=== PATIENT | male | born 1950 | race Caucasian/White ===

== ENCOUNTER → 2021-01-05 01:42 | Outpatient (CLI) | payer MEDICARE, SELFPAY ==
[2021-01-05 17:06] LABS: SARS-CoV-2 RNA PCR Negative
== END ==
PROVIDERS: PCP Family Medicine; Visit Provider Physician Assistant Medical
DX: Z20.822 Contact with and (suspected) exposure to COVID-19 (principal)
CPT/HCPCS: C9803; U0003; U0005

== ENCOUNTER 2021-03-28 10:06 | Emergency (ER) | payer OTHER, SELFPAY ==
--- NOTE | ~2021-03-28 | CT_ITS ---
EXAMINATION: CT cervical spine wo con EXAM DATE: 03/28/2021 13:07 INDICATION: Neck pain, Head injury- TECHNIQUE: Spiral CT of the cervical spine was performed without contrast. Axial images were reviewe d. Coronal and sagittal reformatted images cervical spine were also reviewed. The dose-length produc t (DLP) for this examination was 473.10 mGy-cm. The exposure was tailored according to patient size (auto mA exposure control), and iterative reconstruction (ASIR) was used as additional dose reduction technique. There is no prior study for comparison. FINDINGS: There is no evidence of acute cervical fracture. The odontoid process is intact. Pre-dens space is normal. Prevertebral soft tissue is normal. There are no soft tissue abnormalities identi fied. There is no disc space widening or traumatic vertebral body subluxation suspected. Moderate t o severe disc disease, arthropathy and neural foraminal stenosis C4-C7. A detailed level by level jacinto luation of spondylosis can be added as addendum if requested. IMPRESSION: 1. No acute cervical fracture. 2. Cervical spondylosis. Reviewed, dictated and finalized at location B. 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
--- NOTE | ~2021-03-28 | CT_ITS ---
EXAMINATION: CT brain wo con DATE: 03/28/2021 13:06 INDICATION: Head injury with head pain TECHNIQUE: Computed tomography (CT) of the head was performed without intravenous contrast. Sagittal and coronal reconstructions were performed. The mA was adjusted according to patient size. Iterative reconstruction technique was employed. The dose-length product was 681.00 mGy-cm. COMPARISON: None FINDINGS: Suggestion of mild soft tissue swelling overlying the right supraorbital rim. No fracture. No acute i ntracranial hemorrhage, acute infarction or abnormal extra axial fluid collection. There is moderate scattered white matter hypoattenuation consistent with chronic small vessel ischemic disease. Ventric les are normal and symmetric. No mass/mass effect. Changes of bilateral intraocular lens replacement. The orbits, paranasal sinuses and mastoid air cells are normal. Intracranial calcified cerebral athe rosclerosis is noted. IMPRESSION: 1. No fracture or acute intracranial process. 2. Moderate scattered white matter hypoattenuation consistent with chronic small vessel ischemic dise ase. Reviewed, dictated and finalized at location A. 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 No fracture or acute intracranial process. 2. Moderate scattered white matter hypoattenuation consistent with chronic smal l vessel ischemic disease.
[2021-03-28 10:21] VITALS: BP 177/92; PULSE 92; RESP 18; TEMP 36.8; O2SAT 99
--- NOTE | 2021-03-28 12:11 | ED.HEATRA ---
HPI - Head Injury General Chief complaint: Head Injury Stated complaint: head lac Time Seen by Provider: 03/28/21 11:59 Source: patient Mode of arrival: ambulatory Limitations: no limitations History of Present Illness HPI Narrative: Patient somehow got hit to the right forehead by a piece of metal from his garage door. Prior to arrival. No loss of consciousness, complaining of laceration right forehead. Related Data Allergies Allergy/AdvReac Type Severity Reaction Status Date / Time No Known Allergies Allergy Verified 10/10/20 14:33 Review of Systems Review of Systems: CONSTITUTIONAL: Denies fever, chills, or sweats. EYES: Denies visual changes, redness, or discharge. ENT: Denies rhinorrhea, congestion, sore throat, or otalgia. CARDIOVASCULAR: Denies chest pain, palpitations, or edema. RESPIRATORY: Denies cough or dyspnea. GASTROINTESTINAL: Denies abdominal pain, nausea, vomiting, or diarrhea. GENITOURINARY: Denies dysuria or hematuria. SKIN: Denies rash or itching. MUSCULOSKELETAL: Denies back pain, joint pain, or myalgia. NEUROLOGIC: Denies headache, numbness, or weakness. PSYCHIATRIC: Denies anxiety or depression. PMFSH Past Medical History Medical History Anxiety disorder, unspecified BMI 28.0-28.9,adult CMV (cytomegalovirus infection) Colon polyp Depression with anxiety Elevated glucose Loraine Dexter infection Low testosterone Mixed hyperlipidemia PVC (premature ventricular contraction) Family History Family History Mother Patient's mother is in good health Patient's mother is Sibling Patient's brother is in good health Father Acute myocardial infarction Other Family history of arthritis Hypertension Social History Social History Second hand tobacco smoke exposure: No Smoking end date: 04/15/02 Alcohol intake: never Exam Narrative: General appearance: Well-developed, well-nourished Skin: 4 cm laceration across the right forehead Head: Normocephalic, traumatic right forehead laceration Eyes: Clear conjunctiva ENT: Oropharynx normal, ears normal, nose normal Neck: Supple, nontender Musculoskeletal: Normal range of motion, nontender back Neurologic: Alert and oriented ?3, MENU PLANNER is normal as tested, no gross motor deficit Course Course Emergency Course: Stable Vital Signs Vital signs: Vital Signs Temperature 36.8 C 03/28/21 10:21 Pulse Rate 92 03/28/21 10:21 Respiratory Rate 18 03/28/21 10:21 Blood Pressure 177/92 H 03/28/21 10:21 Pulse Oximetry 99 03/28/21 10:21 Temperature 36.8 C 03/28/21 10:21 Pulse Rate 92 03/28/21 10:21 Respiratory Rate 18 03/28/21 10:21 Blood Pressure 177/92 H 03/28/21 10:21 Pulse Oximetry 99 03/28/21 10:21 Procedures Laceration Laceration 1: Date: 03/28/21 Time: 12:45 Site: face Side (If applicable): right Size (cm): 4 Description: linear and clean Depth: simple, single layer Local Anesthetic: lidocaine 1% and with epi Amount of anesthesia used (mL): 5 ====== Skin Level ====== Skin layer closed with: nylon Size (cm): 6-0 Number of sutures: 8 Technique: simple, interrupted ====== Subcutaneous Layer ====== ====== Muscle Layer ====== ====== Tendon Layer ====== MDM - Head Injury MDM Narrative Medical decision making narrative: Traumatic right forehead laceration, sutures, CT head and cervical spine showed no acute abnormalities. Imaging Data Radiologist
[2021-03-28] MEDS: TETANUS,DIPHTHERIA,AC PERTUSSIS ADULT (0.5 ML) BOOSTRIX IM (12:45)
[2021-03-28] MEDS: CEPHALEXIN 500 MG CAPSULE PO (13:42)
== END 2021-03-28 14:20 | disposition home or self-care (01) ==
PROVIDERS: Emergency Provider Emergency Medicine; PCP Family Medicine
DX: S01.81XA Laceration without foreign body of other part of head, initial encounter (principal); Z23 Encounter for immunization; E78.2 Mixed hyperlipidemia; Z85.038 Personal history of other malignant neoplasm of large intestine; Z87.891 Personal history of nicotine dependence; M47.812 Spondylosis without myelopathy or radiculopathy, cervical region; W22.8XXA Striking against or struck by other objects, initial encounter
CPT/HCPCS: 12013; 70450; 72125; 90471; 90715; 99284; A9270

== ENCOUNTER 2021-11-13 10:47 | Outpatient (CLI) | payer MEDICARE, MEDICAID, SELFPAY ==
--- NOTE | ~2021-11-13 | XR_ITS ---
XR shoulder LT min 2V DATE: 11/13/2021 11:27 INDICATION: Left shoulder pain TECHNIQUE: AP and axillary views COMPARISON: None FINDINGS: There is mild osteoarthritis at the left glenohumeral joint. Mild superior subluxation of the left humeral head may indicate rotator cuff tear or atrophy. No fracture, dislocation, periosteal reaction or bone destruction. Diffuse osteopenia. Degenerative changes of the cervical and thoracic spine. IMPRESSION: Mild glenohumeral osteoarthritis and probable rotator cuff atrophy Osteopenia Degenerative changes of the cervical and thoracic spine Reviewed, dictated and finalized at location B.
--- NOTE | ~2021-11-13 | XR_ITS ---
XR hand RT 2V DATE: 11/13/2021 11:27 INDICATION: Right hand pain TECHNIQUE: AP and lateral views COMPARISON: 11/06/2013 right hand FINDINGS: There is polyarticular osteoarthritis, particularly prominent at the first carpometacarpal joint and second metacarpophalangeal joint with very prominent spurring at the latter. Osteoarthritic changes also noted at the first and second metacarpophalangeal joints and distal interphalangeal dandre nt of the second digit and to a lesser extent other interphalangeal joints. No fracture, dislocation, periosteal reaction or bone destruction, erosive change or chondrocalcinosi s. IMPRESSION: Polyarticular osteoarthritis Reviewed, dictated and finalized at location B.
--- NOTE | ~2021-11-13 | XR_ITS ---
XR elbow LT 2V DATE: 11/13/2021 11:23 INDICATION: Left elbow pain TECHNIQUE: AP and lateral views COMPARISON: 10/21/2017 left elbow FINDINGS: There is very prominent joint space narrowing and spurring consistent with severe osteoarth ritis at the left elbow joint. Mild elbow joint effusion. No fracture or dislocation, periosteal reaction or bone destruction is evident. IMPRESSION: Severe osteoarthritis, mild joint effusion Reviewed, dictated and finalized at location B.
--- NOTE | ~2021-11-13 | XR_ITS ---
XR hand LT 2V DATE: 11/13/2021 11:27 INDICATION: Left hand pain TECHNIQUE: AP and lateral views COMPARISON: None FINDINGS: There is polyarticular osteoarthritis, including first carpometacarpal, first and third met acarpophalangeal joints in particular. There is mild osteoarthritis at some of the interphalangeal meron ints. No erosive change or chondrocalcinosis is noted. No fracture, dislocation, periosteal reaction or bon e destruction. IMPRESSION: Polyarticular osteoarthritis Reviewed, dictated and finalized at location B.
--- NOTE | ~2021-11-13 | XR_ITS ---
XR elbow RT 2V DATE: 11/13/2021 11:27 INDICATION: Right elbow pain TECHNIQUE: AP and lateral views COMPARISON: 10/31/2017 right elbow FINDINGS: Moderate osteoarthritis is again noted. No fracture or dislocation or joint effusion, perio steal reaction or bone destruction. IMPRESSION: Moderate osteoarthritis Reviewed, dictated and finalized at location B. IMPRESSION: Moderate osteoarthritis
--- NOTE | ~2021-11-13 | XR_ITS ---
XR shoulder RT min 2V DATE: 11/13/2021 11:28 INDICATION: Right shoulder pain. No injury. TECHNIQUE: AP and axillary views COMPARISON: None FINDINGS: Osteopenia. Mild to moderate glenohumeral osteoarthritis. Normal alignment at the acromioclavicular and glenohume ral joints. No fracture, dislocation, periosteal reaction or bone destruction. Degenerative changes of the cervical and thoracic spine IMPRESSION: Mild to moderate osteoarthritis at right glenohumeral joint Osteopenia Degenerative changes of the cervical and thoracic spine Reviewed, dictated and finalized at location B.
== END 2021-11-13 10:48 | disposition home or self-care (01) ==
PROVIDERS: PCP Family Medicine; Visit Provider Nurse Practitioner Family
DX: M25.511 Pain in right shoulder (principal); M19.012 Primary osteoarthritis, left shoulder; M19.011 Primary osteoarthritis, right shoulder; M85.89 Other specified disorders of bone density and structure, multiple sites; M19.042 Primary osteoarthritis, left hand; M19.041 Primary osteoarthritis, right hand; M25.422 Effusion, left elbow; M19.022 Primary osteoarthritis, left elbow; M19.021 Primary osteoarthritis, right elbow
CPT/HCPCS: 73030; 73070; 73120

== ENCOUNTER 2022-01-25 09:45 | Outpatient (CLI) | payer MEDICARE, MEDICAID, SELFPAY ==
--- NOTE | ~2022-01-25 | NM_ITS ---
EXAMINATION: NM bone scan whole body DATE: 01/25/2022 12:50 INDICATION: Prostate cancer TECHNIQUE: 22.2 mCi Tc-99m HDP was administered intravenously. Delayed whole-body scintigrams were o btained. COMPARISON: CT abdomen and pelvis and chest radiograph, both dated 01/25/2022 FINDINGS: Typical pattern of likely degenerative joint centered uptake at the bilateral acromioclavicular and g lenohumeral joints, the bilateral elbows, radial aspect of the carpi, bilateral knees with medial com partment predominance and at the bilateral first metatarsophalangeal joints, right greater than left. There is also likely discogenic increased uptake at the left side of the lower lumbar spine correspo nding to severe disc height loss with prominent sclerotic Modic type III endplate changes on the left at L4-L5. Uptake posteriorly at the right side of the lower cervical spine with corresponding severe hypertrophic facet osteoarthritis at C4-C5 and C5-C6 evident on the chest radiograph. No other suspi cious foci of bone uptake to suggest metastatic disease. IMPRESSION: 1. Typical pattern of scattered joint and disc centered uptake in the axial and appendicular skeleton as detailed above. No bone lesions suspicious for metastatic disease. Reviewed, dictated and finalized at location B. IMPRESSION: 1. Typical pattern of scattered joint and disc centered uptake in the axial and appendicular skeleton as detailed above. No bone lesions suspicious for metast atic disease.
--- NOTE | ~2022-01-25 | CT_ITS ---
EXAMINATION: CT abdomen pelvis w con DATE: 01/25/2022 10:34 INDICATION: Prostate cancer. TECHNIQUE: Computed tomography (CT) of the abdomen and pelvis was performed with 100 mL Omnipaque 350 intravenous contrast. Automated exposure control and iterative reconstruction technique were employe d. The dose-length product was 552.86 mGy-cm. COMPARISON: Bone scan 01/25/2022 FINDINGS: The visualized portions of the lung bases demonstrate emphysema and chronic interstitial jim ng disease. No pleural effusion. The heart size is normal. There are coronary artery calcifications. No pericardial effusion. The liver, gallbladder, spleen, pancreas, and adrenal glands are normal. The re are cysts in the kidneys measuring up to 10 mm on the left. There are bilateral inguinal hernias c ontaining fat. There is diverticulosis of the colon without evidence of diverticulitis. The appendix is normal. There are no dilated loops of bowel. There are no pathologically enlarged lymph nodes. The re is no free intraperitoneal fluid. There is severe lumbar spondylosis. There is a chronic left L5 p ars defect. There is mild chronic height loss of multiple vertebral bodies. IMPRESSION: 1. No evidence of metastatic disease. Reviewed, dictated and finalized at location A.
--- NOTE | ~2022-01-25 | XR_ITS ---
XR chest 2V 01/25/2022 10:23 Indication: Prostate cancer Procedure: 2 view chest Comparison: No prior studies for comparison. Findings: There are linear infiltrates bilaterally in the midlungs. Heart size normal. No pleural eff usion, edema or pneumothorax. No acute osseous abnormality. Impression: 1: Linear infiltrates bilateral mid lungs, most likely atelectasis/fibrosis. Pneumonia less favored. Reviewed, dictated and finalized at location A. Impression: 1: Linear infiltrates bilateral mid lungs, most likely atelectasis/fibrosis. Pn eumonia less favored.
[2022-01-25 10:26] LABS: Estimated Glomerular Filt Rate > 60
== END 2022-01-25 09:46 | disposition home or self-care (01) ==
PROVIDERS: PCP Family Medicine; Visit Provider Urology
DX: C61 Malignant neoplasm of prostate (principal); R91.8 Other nonspecific abnormal finding of lung field
CPT/HCPCS: 71046; 74177; 78306; A9561; Q9967

== ENCOUNTER 2022-11-28 11:40 | Outpatient (CLI) | payer MEDICARE, MEDICAID, SELFPAY ==
--- NOTE | ~2022-11-28 | XR_ITS ---
EXAMINATION: XR lumbar spine 6V w bending DATE: 11/28/2022 12:04 INDICATION: Unspecified inflammatory lumbar spondylopathy. TECHNIQUE: 7 fluoroscopic views of the lumbar spine including AP, lateral in neutral, flexion and ext ension, left and right oblique and coned-down lateral lumbosacral views were obtained. COMPARISON: CT abdomen pelvis dated 01/25/2022, lumbar spine MR dated 07/04/2018 and lumbar spine radi ographs dated 06/29/2013 FINDINGS: 12 degree dextroscoliosis measured between L2 and L5. 7 degree anterolisthesis L5 on S1 which is unch anged with flexion and extension. There is 3 mm anterolisthesis L3 on L4 with flexion which reduces i n the neutral position and with extension. Chronic compression fractures with 20% anterior vertebral body height loss at T12 and L1. Severe disc height loss with degenerative endplate changes at L4-5. M oderate disc height loss at L5-S1. Again seen is a left-sided pars intra-articular is defect at L5. M ultilevel bilateral moderate to severe lumbar facet osteoarthritis lower lumbar predominant. Atherosc lerotic abdominal aorta. IMPRESSION: 1. Mild thoracolumbar dextroscoliosis with severe spondylosis. 2. Unilateral left-sided L5 pars intra-articular is defect with 7 mm anterolisthesis L5 on S1 which i s unchanged with flexion and extension. 3. 3 mm anterolisthesis L3 on L4 which reduces in the neutral and extended positions. Reviewed, dictated and finalized at location A. IMPRESSION: 1. Mild thoracolumbar dextroscoliosis with severe spondylosis. 2. Unilateral left-sided L5 pars intra-articular is defect with 7 mm anterolist hesis L5 on S1 which is unchanged with flexion and extension. 3. 3 mm anterolisthesis L3 on L4 which reduces in the neutral and extended posi tions.
== END 2022-11-28 11:41 | disposition home or self-care (01) ==
PROVIDERS: PCP Family Medicine; Visit Provider Nurse Practitioner Family
DX: M46.96 Unspecified inflammatory spondylopathy, lumbar region (principal); R20.0 Anesthesia of skin; R20.2 Paresthesia of skin; M47.816 Spondylosis without myelopathy or radiculopathy, lumbar region; M41.9 Scoliosis, unspecified; R93.7 Abnormal findings on diagnostic imaging of other parts of musculoskeletal system
CPT/HCPCS: 72114

== ENCOUNTER 2023-01-28 11:32 | Outpatient (CLI) | payer MEDICARE, MEDICAID, SELFPAY ==
--- NOTE | ~2023-01-28 | PE_ITS ---
EXAMINATION: PET_PETPSMAST_PT DATE: 01/28/2023 14:19 INDICATION: Posterior cancer TECHNIQUE: 8.383 mCi of pipflufolastat F-18 (18-F-DCFPyL) was administered i.v. Low dose computed to mography (CT) images were acquired from the base of the brain to the base of the brain to the proxima l thighs for attenuation correction and anatomic localization. Positron emission tomography (PET) lien ges were acquired in the same distribution beginning 90 minutes after injection. Images including fus ed PET/CT images were reconstructed in axial, coronal, and sagittal planes. Automated exposure contro l technique was employed. The dose-length product was 486.01mGy-cm. COMPARISON: CT abdomen and pelvis and bone scan dated 01/25/2022 FINDINGS: Head/neck: Typical pattern of symmetric physiologic increased activity in the lacrimal, parotid and submandibula r glands as well as along the mucosa of the nasal and oral cavities, the vi-, naso- and hypopharynx, the glottis and esophagus. No pathologically enlarged cervical lymphadenopathy or suspicious foci of increased uptake in the visualized head or neck. Chest: Moderate to severe upper lung predominant emphysema. Additional subpleural cystic changes at the waldemar phery of the lingula and bilateral lower lobes with intervening irregular septal line thickening whic h could also be related to emphysema or usual interstitial pneumonia (UIP) pattern chronic interstiti al lung disease. No pleural effusion. Cardiomegaly. Atherosclerotic coronary artery calcifications. T horacic aorta is normal in caliber. No pathologically enlarged or PSMA avid thoracic lymphadenopathy. Abdomen/pelvis/proximal thighs: Physiologic renal accumulation and excretion of activity in the kidneys, bladder and along portions o f ureters. Normal degree and slightly heterogenous pattern of increased uptake throughout the liver a nd spleen without radiologic correlate or dominant PSMA avid lesion. The gallbladder, pancreas and bi lateral adrenal glands are normal. Moderate uptake scattered throughout the bowels with typical duode nal and proximal jejunal predominance and without radiologic correlate, also likely physiologic. Ther e is moderate colonic diverticulosis with a sigmoid predominance. There is no adjacent inflammatory change to suggest diverticulitis. Normal appendix. Mild heterogeneous pattern of increased uptake in the prostate, the largest and most intense region of uptake at the left side with maximal SUV of 6.7 consistent with known primary prostate cancer. No other abnormal foci of increased uptake or patholog ically enlarged lymphadenopathy in the abdomen, pelvis or proximal thighs. Musculoskeletal: Moderate cervical and thoracic and severe lumbar spondylosis. Chronic L5 pars intra-articular is defe ct with minimal anterolisthesis with respect to S1. Chronic mild anterior wedging of a few thoracic a nd upper lumbar vertebral bodies. Old fractures of the posterior right second and third ribs. No susp icious lytic, blastic or PSMA avid bone lesions to suggest osseous metastatic disease. IMPRESSION: 1. Heterogeneous pattern of abnormal increased PSMA uptake consistent with primary prostate cancer. N o evident metastatic disease. Reviewed, dictated and finalized at location A. IMPRESSION: 1. Heterogeneous pattern of abnormal increased PSMA uptake consistent with prim juan diego prostate cancer. No evident metastatic disease.
== END 2023-01-28 11:33 | disposition home or self-care (01) ==
LOC: ANHIMG 11:34
PROVIDERS: PCP Family Medicine; Visit Provider Urology
DX: C61 Malignant neoplasm of prostate (principal)
CPT/HCPCS: 78815; A9595

== ENCOUNTER 2023-04-03 11:00 | Outpatient (RCR) | payer MEDICARE, MEDICAID, SELFPAY ==
--- NOTE | 2023-03-06 17:05 | OPREHPOC ---
Outpatient Therapy Plan of Care This is a Multidisciplinary Plan of Care that may contain components documented by all disciplines (PT, OT, and ST.) PT Problem 1 PT Problem #1 Knowledge Deficit PT Goal 1 Goal Pt to be IND with issued HEP Target Visit 4 PT Problem 2 PT Problem #2 Pain PT Goal 1 Goal Pt to report back pain no greater than 5/10 in the last week Target Visit 4 PT Goal 2 Goal Pt to report 75% improvement in overall symptoms. Target Visit 4 PT Problem 3 PT Problem #3 Impaired Gait PT Goal 1 Goal Pt to ambulate with an upright trunk posture Target Visit 4 PT Problem 4 PT Problem #4 Pain PT Goal 1 Goal Pt to improve Oswestry score from 20/50 to 10/50
--- NOTE | 2023-03-06 17:06 | PTOPEVAL1 ---
Assessment and note entered by Darrin Gibson, PT, DPT Evaluation Information Assessment Status Evaluation Diagnosis severe lumbar stenosis and multilevel anterolisthesis Onset chronic Subjective Information Pt states he has chronic low back pain. He states he gets a crunching feeling and a stabbing pain in his back with every step he takes. He states he furniture walks at home. He states he has done multiple rounds of physical therapy in the past for his back. He states he also has numbness and pain down his legs and has noticed increased unsteadiness. Pt jumps in pain periodically throughout evaluation this date. Reported Pain Level Pain Score 1: Self Report Assessment PT Clinical Summary Kiran Breaux presents to therapy today for his initial evaluation with a diagnosis of lumbar spondylosis. Today he demonstrates decreased active lumbar ROM in all directions limited by pain, fair LE strength, a L sided foot drop, and impaired gait. He has poor motion of his lumbar spine. He reports extremely high pain reports at times. Skilled therapy services are indicated for core strength, to improve mobility, to manage pain , and to improve functional mobility. Plan of Care Interventions Electrical Stimulation,Gait Training,Hot Pack/Cold Pack,Manual Therapy,Mechanical Traction,Neuro Re- education,Patient/Caregiver Educati,Therapeutic Activities,Therapeutic Exercise PT Services Indicated Yes Treatment Frequency and 1x/wk for 4 visits Duration These treatments will address the objective and functional deficits as defined above. The patient will be advanced safely and appropriately in order for the patient to progress towards his/her prior level of function. Additional exercises will be introduced and as well as a comprehensive home exercise program upon discharge, if needed, ?to ensure carryover of functional gains achieved in the clinic. This treatment plan has been reviewed and agreement upon by the patient.
--- NOTE | 2023-03-26 11:17 | PCPTNOTE ---
Patient called and left voicemail stating he could not make it today.
--- NOTE | 2023-04-03 11:49 | PTOPDC ---
Assessment and note entered by Darrin Gibson, PT, DPT Evaluation Information Assessment Status Discharge Diagnosis severe lumbar stenosis and multilevel anterolisthesis Onset chronic Subjective Information Pt states he suffers from extreme fatigue and sometimes will sleep 20+ hours a day. He states he sees little to no improvements in his pain since starting therapy. He states he likes his own exercises better. He states if he is out of bed and moving his back will feel a little bit better. He states he was in worse pain after his last therapy appointment. Reported Pain Level Pain Score 0: Self Report Assessment PT Clinical Summary Kiran Breaux presents to therapy today for his progress report following 3 visits of skilled therapy to treat his diagnosis of lumbar spondylosis. Today he continues to demonstrate decreased active lumbar ROM in all directions limited by pain, fair LE strength, a L sided foot drop, and impaired gait. He has poor motion of his lumbar spine. He reports extremely high pain reports without any measurable improvements in the last month. Education given on next POC. Pt would like to be discharged at this time. Plan of Care PT Services Indicated No
== END 2023-04-03 15:10 | disposition home or self-care (01) ==
LOC: ANHGOSHPT 11:00
PROVIDERS: PCP Family Medicine; Visit Provider Anesthesiology Pain Medicine
DX: M48.062 Spinal stenosis, lumbar region with neurogenic claudication (principal); M47.817 Spondylosis without myelopathy or radiculopathy, lumbosacral region; M15.9 Polyosteoarthritis, unspecified; G89.29 Other chronic pain; M54.9 Dorsalgia, unspecified
CPT/HCPCS: 97110; 97161; 97530

== ENCOUNTER 2023-05-14 13:02 | Outpatient (CLI) | payer MEDICARE, MEDICAID, SELFPAY ==
--- NOTE | ~2023-05-14 | MR_ITS ---
MRI of the lumbar spine Clinical History: Radiculopathy Technique: Axial T2-weighted images, and sagittal T1-weighted, T2-weighted, and T2 fat-sat images wer e acquired. COMPARISON: 07/04/2018 Findings: No acute fracture seen. 5 mm anterolisthesis of L5 over S1 present. Intraosseous hemangioma of L1 present, probable mild chronic L1 fracture deformity, unchanged. No suspicious bone marrow sig nal abnormality seen. At L1-L2, there is mild degenerative disc narrowing with minimal disc bulge and mild to moderate face t arthropathy. No central canal stenosis or definite neural foraminal narrowing. At L2-L3, there is minimal disc bulge and advanced facet arthropathy. No central canal stenosis. Ther e is mild right neural foraminal narrowing. Left neural foramen preserved. At L3-L4, there is disc bulge and severe facet arthropathy, resulting in severe spinal canal stenosis /thecal sac compression. There is severe bilateral neural foraminal narrowing. At L4-L5, there is severe degenerative disc narrowing. Disc bulge and severe facet arthropathy result in moderate to severe spinal canal stenosis/thecal sac compression. There is severe bilateral neural foraminal compromise. At L5-S1, there is advanced degenerative disc disease. Diffuse disc bulge and severe facet arthropath y are present. No selwyn central canal stenosis. There is severe bilateral neural foraminal narrowing, right worse than left. Paravertebral soft tissues are unremarkable. Impression: Severe degenerative spondylosis, especially at L3-L4, L4-L5, and L5-S1, as detailed above. Chronic mild compression deformity of L1 with intraosseous hemangioma. 5 mm anterolisthesis of L5 over S1. Reviewed, dictated and finalized at [facility]. [facility] Impression: Severe degenerative spondylosis, especially at L3-L4, L4-L5, and L5-S1, as deta iled above. Chronic mild compression deformity of L1 with intraosseous hemangioma. 5 mm anterolisthesis of L5 over S1.
== END 2023-05-14 13:03 ==
LOC: MICIMG 13:03
PROVIDERS: PCP Anesthesiology Pain Medicine; Visit Provider Anesthesiology Pain Medicine
DX: M47.27 Other spondylosis with radiculopathy, lumbosacral region (principal)
CPT/HCPCS: 72148

== ENCOUNTER 2023-08-06 00:35 | Day surgery (SDC) | payer MEDICARE, MEDICAID, SELFPAY ==
[2023-08-01 14:56] VITALS: BMI 26.6
--- NOTE | 2023-08-01 15:04 | PC.NURSE ---
PRE-OP INSTRUCTIONS, PLEASE READ CAREFULLY Report to the Outpatient Waiting Room, entrance under the green pavilion located off [facility], at time _0600_ on date _08/06/23_. Planned Procedure Time: _07_. Time changes happen often and if your time is changed the preop area will call you the afternoon before. - You and your visitor will be asked to self-screen and do not enter if you have any COVID symptoms. - A mask is optional within the hospital at this time. - No food/fluids from midnight until time of surgery Take the following medications with a SIP of water the morning of surgery: _NASAL SPRAY IF NEEDED_ DO NOT STOP ANY OF YOUR OTHER PRESCRIPTION MEDICATIONS PRIOR TO SURGERY ?EXCEPT THE FOLLOWING Medications to discontinue - _DICLOFENAC TOPICAL OINTMENT INSTRUCTED BY DR. CESPEDES_ Please no make-up, nail urdu, hairspray, perfume, deodorant, or body powder the day of surgery. No jewelry (including any body piercings) or valuables the day of surgery, leave them at home. Please take a shower or bath the night before, or the morning of, surgery with an antibacterial soap. Wear comfortable, loose fitting clothing. - Jewelry must be removed prior to entering the operating room. Rings and piercings that are not removed may be cut off. - The hospital will not accept responsibility for valuables. - Please leave all valuables, including medications, at home the day of surgery. If you are going home after surgery, a licensed local company flatbed truck driver must drive you home. - NO public transportation without another adult if you receive anesthesia. - We recommend that an adult stay with you for 24 hours following discharge. - We also recommend that you do not drive, make important decision, drink alcoholic beverages, or take any drugs that were not prescribed by your health care provider for at least 24 hours after your discharge time. Follow any additional instructions given to you from your surgeon. If you or anyone in your household have experienced Covid symptoms in the past week, please notify your surgeon or the nurse liaison at the phone number below for possible testing. Telephone instructions given to _PATIENT_and asked if any additional questions and then verbalized understanding. Patient advised to call surgeon office or pre surgery nurse liaison [phone] if any additional questions.
[2023-08-06] VITALS (8 sets, daily range): BP systolic 121–179; BP diastolic 69–92; PULSE 84–115; RESP 16–20; TEMP 36.2–36.7; O2SAT 96–100
--- NOTE | ~2023-08-06 | XR_ITS ---
XR fluoroscopy no charge Indication: Lumbar decompression at L3-4 and L4-5 TECHNIQUE: Fluoroscopy used during Lumbar decompression at L3-4 and L4-5 performed by [Mark Tafoya MD] on 08/06/2023. 6 minutes 28 seconds of fluoroscopy with 10 fluoroscopic images captured. FINDINGS: Correlate with procedure note. IMPRESSION: Fluoroscopy used during Lumbar decompression at L3-4 and L4-5. Please refer to procedural report. Reviewed, dictated and finalized at location B. IMPRESSION: Fluoroscopy used during Lumbar decompression at L3-4 and L4-5. Plea se refer to procedural report.
--- NOTE | 2023-08-06 06:05 | PM.HPGS ---
History of Present Illness History of Present Illness Consent: Risks, benefits, and alternatives have been discussed and questions answered. Patient agrees to proceed with procedure. Chief complaint: Lumbar Spinal Stenosis with Neurogenic Claudicatio Narrative: Kiran Read is a 73 year old male with chronic, recalcitrant and disabling neurogenic clausication/radiculopathy secondary to moderate to severe lumbar central canal spinal stenosis with ligamentum flavum hypertrophy with failure to respond to aggressive conservative measures including PT, oral and topical analgesics, opioid and nonopioid analgesics, rest, time and activity/behavioral modification over the past [1-2] [years] who presents for minimall invasive lumbar decompression under fluoroscopic guidance with possible epidurogram. Review of Systems Review of Systems: All systems reviewed & are unremarkable except as noted in HPI and below PMFSH Past Medical History Medical History Allergies Anxiety disorder, unspecified Arm pain Arthritis BMI 26.0-26.9,adult BMI 27.0-27.9,adult BMI 28.0-28.9,adult CMV (cytomegalovirus infection) Colon polyp Degenerative arthritis of knee, bilateral Depression with anxiety Elevated glucose Loraine Dexter infection Hypertension Insomnia Low testosterone Mixed hyperlipidemia Prostate cancer PVC (premature ventricular contraction) URI (upper respiratory infection) Surgical History Surgical History History of eye surgery History of removal of cyst Family History Family History Mother Patient's mother is Cerebrovascular accident Breast cancer Sibling Patient's brother is in good health Father Acute myocardial infarction Other Family history of arthritis Hypertension Social History Social History Smoking packs per day: 1 Smoking cigarettes per day: 20.0 Years smoked: 25 Smoking pack-years: 25.00 Smoking status: Former smoker Tobacco type: cigarettes Second hand tobacco smoke exposure: No Smoking end date: 04/15/02 Alcohol intake: never Substance use: never Substance use type: does not use Do You Feel Safe in your Home?: Yes Lack of Transportation: No Lack of Food: Never True Current Housing: I Have Housing Concerned About Future Housing: No Difficulty Paying Gas/Electric Bills: YES Difficulty Paying for Meds: No Currently Unemployed: Decline to Answer Education: High School Diploma/GED Difficulty w/ Childcare or Family Care: Decline to Answer Living arrangements: with family Occupation/Education: occupation 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 Gender identity (if verbalized by the patient): Male Spiritual care concerns: No Meds Home Medications and Allergies Home Medications Medication Instructions Recorded Confirmed Type modafinil 200 mg tablet (Provigil) 200 mg PO QAM #90 tabs 05/01/23 08/01/23 Rx evolocumab 140 mg/mL subcutaneous 140 mg subcut .Every 2 weeks #2 mL 05/09/23 08/01/23 Rx pen injector (Vikas Hager) hydrochlorothiazide 25 mg tablet See Rx Instructions .Route 07/21/23 08/01/23 Rx .COMPLEX #90 tabs trazodone 50 mg tablet 50 mg PO QHS PRN insomnia #30 tabs 07/27/23 08/01/23 Rx diclofenac sodium 1 % topical gel 4 g topical QID PRN Pain 08/01/23 08/01/23 History fluticasone propionate 50 2 spray intranasal DAILY PRN 08/01/23 08/01/23 History mcg/actuation nasal Congestion spray,suspension (Flonase Allergy Relief) Allergies Allergy/AdvReac Type Severity Reaction Status Date / Time No Known Allergies Allergy Verified 08/01/23 14:53 Exam Narrative: The patient's physical exam is essentially unchanged from prior examination on
--- NOTE | 2023-08-06 06:20 | WPDHPUPDATE1 ---
History and Physical Update Update Date/Time: 08/06/23 06:20 History and Physical has been reviewed, including an updated exam of the patient. There are NO changes in the patient's condition. Risks, benefits, and alternatives have been discussed and questions answered. Patient agrees to proceed with procedure.
--- NOTE | 2023-08-06 06:21 | W.PM.PROC2 ---
Procedure Note - Detailed Date of Procedure 08/06/23 Pre-op Diagnosis Lumbar Spinal Stenosis with Neurogenic Claudication, chronic pain Post-op Diagnosis Same Procedure Performed Bilateral Minimally Invasive Lumbar Decompression (MILD) at L3-4, L4-5 under Fluoroscopic Guidance. Surgeon Mark Tafoya MD Anesthesia Local and Other ([Moderate IV sedation/MAC] with local anesthetic infiltration in the prone position) Description of Procedure INFORMED CONSENT: Risks, benefits, and alternatives to the procedure were discussed in detail with the patient who expressed explicit understanding and consent to proceed. Risks discussed with the patient included but were not limited to risk of serious local or systemic infection, bleeding/bruising, epidural hematoma, dural puncture or tear resulting in CSF leak and acute or chronic post-dural puncture headache, scarring/deformity, immediate or delayed allergic reaction, decreased mobility, failure to treat pain, inadvertent neurologic injury resulting in increased pain, weakness/paralysis or numbness, inadvertent organ injury, need for additional surgery, allergic reaction, heart attack, stroke, seizure, coma, . Anesthetic risks were also briefly discussed by myself and the credit coordinator. The patient expressed understanding and consent to proceed, agreeing that potential benefits outweigh risk of harm. All materials required for the procedure were immediately available prior to procedure start. Site and side were confirmed with the patient, compared carefully to the patient chart and consent, and marked prior to transport to the operating room. Appropriate time out procedure was performed per protocol prior to procedure start. PROCEDURE IN DETAIL: The patient was brought to the operative suite and placed in the supine position. Appropriate ASA standard monitors were attached. General anesthesia was initiated without difficulty or event. Patient converted to prone position. Eyes were protected. Pressure points were padded with joints in neutral position. When appropriate, breasts and genitals were evaluated and protected. Eyes were checked and were free from undue pressure. Skin overlying the procedure site was marked with sterile marker. Surgical area was prepared in a typical sterile fashion with ChloraPrep and allowed to dry for at least 3 minutes prior to sterilely draping the surgical site. The lumbar spine was identified in the AP fluoroscopic view with slight cephalad tilt perfectly aligning the endplates at the targeted levels with spinous processes bisecting the transpedicular plane. After identifying the intended incision site approximately 1.5 levels inferior to the level of interest, the area was anesthetized by infiltration with no more than 10ml of a 1:1 admixture of 0.5% PF bupivacaine with epinephrine and 2% PF lidocaine with epinepherine via a 27-gauge needle after negative aspiration. A 22-gauge spinal needle was used to provide additional and adequate local anesthesia to the level of the interspinous ligament, ligamentum flavum and the periosteum of the lamina at the intended treatment levels. In the AP view, a #11 scalpel blade was used to create a single stab incision at the intended incision site on the targeted side. The Vertos MILD kit was opened and the included cannula and trocar assembly was advanced through the incision to contact the midportion of the right lamina just adjacent to the spinous process at L5. Once seated, the lateral view was used to gauge depth demonstrating the most anterior tip of the trocar posterior to the epidural space at all times. The lockmaker-provided cannula stabilizer was placed over the trocar flush to the patient's lumbar flank. Cannula obturator with handle was removed. Included depth guide was then attached to the insertion port on the cannula and set to an intial depth of 15 mm. The bone rongeur was advanced to the depth of the lumbar lamina at the
[2023-08-06 07:03] LABS: Anion Gap 10 mmol/L (4-12); Blood Urea Nitrogen 15 mg/dL (9-20); Carbon Dioxide 24 mmol/L (22-30); Chloride 105 mmol/L (98-107); Estimated CRCL calculation 65 ml/min; Estimated Glomerular Filt Rate > 60; Glucose 129 mg/dL (65-110); Potassium 3.7 mmol/L (3.4-5.0); Sodium 139 mmol/L (137-145)
--- NOTE | 2023-08-06 07:20 | WPDANESEPPF ---
Anes - Initial Pre Proc Eval Procedure: Operation Date: 08/06/23 07:30 Proposed Procedures p Bilateral L3-4, L4-5 Minimally Invasive Lumbar Decompression under Fluoroscopic Guidance with Possible Epidurogram - Mark Tafoya MD Date/Time: 08/06/23 07:20 Surgeon: Mark Tafoya MD Pre Op Diagnosis: Lumbar Spinal Stenosis with Neurogenic Claudicatio Patient Data Age: 73 Gender: M Height: 1.68 m Weight: 75 kg Last Vital Signs Temp 98.1 F 08/06/23 06:57 Pulse 98 08/06/23 06:57 Resp 16 08/06/23 06:57 BP 179/92 H 08/06/23 06:57 Pulse Ox 99 08/06/23 06:57 O2 Del Method Room Air 08/06/23 06:57 Allergies Allergy/AdvReac Type Severity Reaction Status Date / Time No Known Allergies Allergy Verified 08/01/23 14:53 Home Medications Medication Instructions Recorded Confirmed Type modafinil 200 mg tablet (Provigil) 200 mg PO QAM #90 tabs 05/01/23 08/06/23 Rx evolocumab 140 mg/mL subcutaneous 140 mg subcut .Every 2 weeks #2 mL 05/09/23 08/01/23 Rx pen injector (Vikas Hager) hydrochlorothiazide 25 mg tablet See Rx Instructions .Route 07/21/23 08/01/23 Rx .COMPLEX #90 tabs trazodone 50 mg tablet 50 mg PO QHS PRN insomnia #30 tabs 07/27/23 08/01/23 Rx diclofenac sodium 1 % topical gel 4 g topical QID PRN Pain 08/01/23 08/06/23 History fluticasone propionate 50 2 spray intranasal DAILY PRN 08/01/23 08/01/23 History mcg/actuation nasal Congestion spray,suspension (Flonase Allergy Relief) Laboratory Tests 08/06/23 06:32 Sodium 139 mmol/L (137-145) Potassium 3.7 mmol/L (3.4-5.0) Chloride 105 mmol/L (98-107) Carbon Dioxide 24 mmol/L (22-30) Anion Gap 10 mmol/L (4-12) BUN 15 mg/dL (9-20) Creatinine 0.80 mg/dL (0.7-1.3) Estim Creat Clear Calc 65 ml/min Estimated GFR > 60 (59 - ) Glucose 129 H mg/dL (65-110) Calcium 10.0 mg/dL (8.4-10.2) Patient hx anesthesia problems: none Family hx anesthesia problems: none Results Review: All pre-operative results and documents have been reviewed as part of the pre-operative evaluation. [facility] Past Medical History Medical History Allergies Anxiety disorder, unspecified Arm pain Arthritis BMI 26.0-26.9,adult BMI 27.0-27.9,adult BMI 28.0-28.9,adult CMV (cytomegalovirus infection) Colon polyp Degenerative arthritis of knee, bilateral Depression with anxiety Elevated glucose Loraine Dexter infection Hypertension Insomnia Low testosterone Mixed hyperlipidemia Prostate cancer PVC (premature ventricular contraction) URI (upper respiratory infection) Surgical History Surgical History History of eye surgery History of removal of cyst Family History Family History Mother Patient's mother is Cerebrovascular accident Breast cancer Sibling Patient's brother is in good health Father Acute myocardial infarction Other Family history of arthritis Hypertension Social History Social History Smoking packs per day: 1 Smoking cigarettes per day: 20.0 Years smoked: 25 Smoking pack-years: 25.00 Smoking status: Former smoker Tobacco type: cigarettes Second hand tobacco smoke exposure: No Smoking end date: 04/15/02 Alcohol intake: never Substance use: never Substance use type: does not use Do You Feel Safe in your Home?: Yes Lack of Transportation: No Lack of Food: Never True Current Housing: I Have Housing Concerned About Future Housing: No Difficulty Paying Gas/Electric Bills: YES Difficulty Paying for Meds: No Currently Unemployed: Decline to Answer Education: High School Diploma/GED Difficulty w/ Childcare or Family Care: Decline to Answer Living arr
[2023-08-06] MEDS: ceFAZolin 2 GM/D5W 50 ML 2 GM/50 ML BAG IVPB (07:40)
[2023-08-06] MEDS: LACTATED RINGERS 1,000 ML 30 ML IV CONT (07:58)
[2023-08-06] MEDS: LIDOCAINE HCL 1% LOCAL INJ 20 ML VIAL 30 ML INFILTRATE (08:09)
[2023-08-06] MEDS: BUPIVACAINE/EPINEPHRINE 0.5% 50 ML VIAL 30 ML INFILTRATE (08:09)
--- NOTE | 2023-08-06 09:48 | SUR.PHASEI ---
Patient complained of worsening foot drop in left foot. Stated he had prior foot drop , yet is unable to dorsiflex. Patient also stated his feeling is slightly diminished in the left ankle. Dr. Tafoya is aware.
[2023-08-06] MEDS: ONDANSETRON INJ 4 MG/2 ML VIAL IV PUSH (10:24)
== END 2023-08-06 10:50 | disposition home or self-care (01) ==
PROVIDERS: Anesthesiology; PCP Family Medicine; Visit Provider Anesthesiology Pain Medicine
PROC: (CPT 0275T; principal; 2023-08-06 07:30)
DX: M48.062 Spinal stenosis, lumbar region with neurogenic claudication (principal); M54.16 Radiculopathy, lumbar region; G89.29 Other chronic pain; I10 Essential (primary) hypertension; E78.2 Mixed hyperlipidemia; F41.8 Other specified anxiety disorders; Z85.46 Personal history of malignant neoplasm of prostate; Z87.891 Personal history of nicotine dependence
CPT/HCPCS: 0275T; 36415; 80048; 99199; C1889; J0330; J0690; J1100; J2405; J2704; J3010; J7120

== ENCOUNTER 2023-09-30 13:44 | Outpatient (CLI) | payer MEDICARE, MEDICAID, SELFPAY ==
--- NOTE | ~2023-09-30 | MR_ITS ---
EXAMINATION: MR lumbar spine wo/w con DATE: 09/30/2023 14:25 INDICATION: Spinal stenosis, lumbar region with neurogenic claudication. Low back pain. Bilateral leg pain. TECHNIQUE: Magnetic resonance imaging (MRI) of the lumbar spine was performed without and with 15 mL MultiHance intravenous contrast. COMPARISON: Lumbar spine MRI 05/14/2023 FINDINGS: There is 13 degrees dextroscoliosis of lumbar spine. There is 3 mm retrolisthesis of L4 for barakat on L5. There are chronic bilateral L5 pars defects. There is 4 mm anterolisthesis of L5 on S1. T here is a hemangioma in L1 vertebral body. There is mild chronic anterior wedging of T11-L1 vertebral bodies. There is mildly decreased disc height at L3-L4 and severely decreased disc height at L4-L5 a nd L5-S1. The distal spinal cord signal intensity is normal. The conus medullaris is at L2. The follo wing disc levels are specifically discussed: L1-L2: The disc is bulging. There is mild bilateral facet joint osteoarthritis. There is mild bilater al neural foraminal stenosis. There is mild central canal stenosis. L2-L3: The disc is bulging. There is severe right and moderate left facet joint osteoarthritis. There is mild bilateral neural foraminal stenosis. There is no central canal stenosis. L3-L4: The disc is bulging with superimposed central extrusion. There is severe bilateral facet joint osteoarthritis. There is moderate bilateral neural foraminal stenosis. There is mild central canal s tenosis. L4-L5: The disc is bulging and has an annular fissure. There is severe bilateral facet joint osteoart hritis. There is moderate bilateral neural foraminal stenosis. There is moderate central canal stenos is. L5-S1: The disc is bulging and has an annular fissure. There is severe right and moderate left facet joint osteoarthritis. There is moderate right and mild left neural foraminal stenosis. There is mild central canal stenosis. IMPRESSION: 1. Severe lumbar spondylosis, stable from 05/14/2023. 2. Chronic bilateral L5 pars defects with grade 1 anterolisthesis of L5 on S1. Reviewed, dictated and finalized at location E.
== END 2023-09-30 13:45 ==
LOC: MICIMG 13:45
PROVIDERS: PCP Family Medicine; Visit Provider Anesthesiology Pain Medicine
DX: M48.062 Spinal stenosis, lumbar region with neurogenic claudication (principal); M47.896 Other spondylosis, lumbar region
CPT/HCPCS: 72158; A9577

== ENCOUNTER 2023-10-09 11:15 | Outpatient (RCR) | payer MEDICARE, MEDICAID, SELFPAY ==
--- NOTE | 2023-09-19 11:53 | OPREHPOC ---
Outpatient Therapy Plan of Care This is a Multidisciplinary Plan of Care that may contain components documented by all disciplines (PT, OT, and ST.) PT Problem 1 PT Problem #1 Knowledge Deficit PT Goal 1 Goal *indep with HEP Target Visit 8 PT Problem 2 PT Problem #2 Pain PT Goal 1 Goal 1* pt report pain rating at worst of 8/10 2* pt report walking/standing tolerance of 10 minutes with home tasks 3* Oswestry self assessment rating of 36% limitation in activity level. Target Visit 8 PT Problem 3 PT Problem #3 Impaired Strength PT Goal 1 Goal increase strength of trunk and hips, to improve mobility skills and position of trunk 1* pt perform mat strengthening exercises of R and L x 20 reps 2* 2 minute walking test distance of 375' Target Visit 8
--- NOTE | 2023-09-19 11:53 | PTOPEVAL1 ---
Assessment and note entered by Amelia Castro, PT Evaluation Information Diagnosis back pain, s/p MILD 08-06-23 Onset about one year ago Subjective Information chronic back pain, more pain and had surgery ; more pain since surgery--worse than was; history of L foot drop--had prior to surgery; previous PT--exercises- helped some before surgery Activity: is indep with bathing, dressing, light home tasks; use cane most of the time; Goal: less pain Reported Pain Level Pain Score Self Report Additional Pain Score Comments pain range in the past week 0-10/10; radicular pain L post LE to thigh/ R to distal buttock pain comes and goes, hurts so bad don't know what to do about it; increase pain: standing up- catch in L buttock and have sharp pain; stretching exercise previously did decrease pain: sit/rest, take hydrocodone heat/ice do not help--have not tried lately reported tolerances: stand/walk with cane a few minutes; sleeping not awaken due to pain pain in both knees--should have had TKR years ago; Assessment PT Clinical Summary Saeid has the diagnosis of radicular lumbar pain. Reports intermittent radicular pain: R to buttock and L to posterior thigh. He is s/p MILD in July. He has L foot drop from prior to his surgery. He also has bilateral knee arthritis. History includes prostate cancer, that he has not yet received treatment for, due to taking care of his back and back pain. Oswestry self assessment functional score of 48% limitation in activity level. With the evaluation: pain is increased with standing trunk extension and supine L hip IR and ER motions; weakness over trunk and hips; is not able to tolerate prone position; 2 minute walking test distance of 290' without assistive device. Poor standing position of trunk and LE's. Skilled PT services are indicated for modalities to decrease pain; therapeutic exercises to increase trunk and hip stre
--- NOTE | 2023-10-11 11:35 | PCPTNOTE ---
Pt canceled stating he can't make it.
--- NOTE | 2023-10-15 11:51 | PCPTNOTE ---
Canceled appt, reason unknown. AKS
--- NOTE | 2023-10-23 14:13 | PTOPDC ---
Assessment and note entered by Amelia Castro, PT Discharge Report Assessment Status Discharge - Pt Not Present Diagnosis back pain, s/p MILD 4-23-24 Onset about one year ago Subjective Information talked with pt on phone- stated he needed to stop therapy- not helping; Assessment PT Clinical Summary Ray did not show for today's reevaluation appointment. I called him and he stated need to stop therapy, it is not helping. He attended 4 PT sessions, from September 18 to . He called and canceled 2 and did not show for 1 appointment. Discharge PT services. The goals were not addressed. Plan of Care PT Services Indicated No
== END 2023-10-23 16:42 | disposition home or self-care (01) ==
LOC: ANHPT 11:15
PROVIDERS: PCP Family Medicine; Visit Provider Anesthesiology Pain Medicine
DX: G89.29 Other chronic pain (principal); M48.062 Spinal stenosis, lumbar region with neurogenic claudication; M21.372 Foot drop, left foot; M54.9 Dorsalgia, unspecified; M15.9 Polyosteoarthritis, unspecified
CPT/HCPCS: 97014; 97110; 97161; 97530; G0283